=== PATIENT | male | born 1995 | race Caucasian/White ===

== ENCOUNTER 2018-09-30 07:46 | Emergency (ER) | payer BC ==
[2018-09-30 08:02] VITALS: BP 130/91
[2018-09-30] MEDS ORDERED: Ondansetron ODT TAB* 4 MG PO ONE (08:32)
--- NOTE | 2018-09-30 08:33 | UC ---
Headache HPI - HPI Summary HPI Summary: 23-year-old male comes in with a chief complaint of headache. This headache started 2 days ago in the morning. It's primarily in the frontal and occipital areas. At its worse at 8 out of 10. Right now it's a 6 out of 10. He states ibuprofen but that did not help. No focal weakness or numbness. Any kind of movement or light makes the headache worse. He's had nausea and vomiting with the headache. Also chills. He had a tick bite on the right leg 3 weeks ago. Approximately in June 2018 patient started having headaches. Prior to this time he had not had any history of headaches. The headaches are similar in location to this headache today. He did go to an urgent care and got a shot for pain medicine once but other than that he has not had any medical evaluation for these headaches. He's been getting these headaches on and off ever since. His last headache was one week ago and it lasted 24 hours. In between the headaches he does not have any headache pain. This headache is worse than the prior headaches and also this is the first days of had nausea vomiting and chills. He does have some upper neck pain but no lower back pain. No bodyaches or joint aches. - History Of Current Complaint Chief Complaint: UCHeadache Stated Complaint: HEADACHE Time Seen by Provider: 09/30/18 08:18 Pain Intensity: 6 - Allergies/Home Medications Allergies/Adverse Reactions: Allergies Allergy/AdvReac Type Severity Reaction Status Date / Time No Known Allergies Allergy Verified 09/30/18 08:02 Home Medications: Home Medications NK [No Home Medications Reported] 09/30/18 [History Confirmed 09/30/18] PMH/Surg Hx/FS Hx/Imm Hx Previously Healthy: Yes - Surgical History Surgical History: Yes Surgery Procedure, Year, and Place: T&A - Family History Known Family History: Positive: Non-Contributory - Social History Alcohol Use: Rare Substance Use Type: None Smoking Status (MU): Never Smoked Tobacco Review of Systems All Other Systems Reviewed And Are Negative: Yes Constitutional: Positive: Chills, Other - SEE HPI Skin: Positive: Negative Eyes: Positive: Photophobia ENT: Positive: Negative Respiratory: Positive: Negative Cardiovascular: Positive: Negative Gastrointestinal: Positive: Vomiting, Nausea Motor: Positive: Negative Neurovascular: Positive: Negative Musculoskeletal: Positive: Negative Neurological: Positive: Headache Psychological: Positive: Negative Is Patient Immunocompromised?: No Physical Exam Triage Information Reviewed: Yes Appearance: Well-Nourished, Ill-Appearing - MILD, Pain Distress - MILD Vital Signs: Initial Vital Signs Temp 97.9 F 09/30/18 07:54 Pulse 110 09/30/18 07:54 Resp 18 09/30/18 07:54 BP 130/91 09/30/18 07:54 Pulse Ox 98 09/30/18 07:54 Vital Signs Reviewed: Yes Eyes: Positive: Conjunctiva Clear, Other: - PERRLA/EOMI,POSITIVE PHOTOPHOBIA ENT: Positive: Pharynx normal, TMs normal Neck: Positive: Supple Respiratory: Positive: Lungs clear, Normal breath sounds, No respiratory distress Cardiovascular: Positive: Tachycardia Musculoskeletal Exam: Normal Musculoskeletal: Positive: Strength Intact, ROM Intact Neurological Exam: Normal Neurological: Positive: Alert, Muscle Tone Normal Psychological Exam: Normal Psychological: Positive: Normal Response To Family, Age Appropriate Behavior Skin Exam: Normal Headache Course/Dx - Course Course Of Treatment: I recommended further evaluation I recommended further evaluation in the emergency department. Patient is from [place] they plan to go to [place] emergency department. - Differential Dx/Diagnosis Provider Diagnosis: Headache, Nausea & vomiting Discharge - Sign-Out/Discharge Documenting (check all that apply): Patient Departure All imaging exams completed and their final reports reviewed: No Studies - Discharge Plan Condition: Stable Disposition: HOME-RECOMMEND TO ED Patient Education Materials: Acute Headache (ED), Acute Nausea and Vomiting (ED ) Referrals: Jewell Schultz NP [Primary Care Provider] - Additional Instructions: GO DIRECTLY TO THE EMERGENCY DEPARTMENT FOR FURTHER EVALUATION. - Billing Disposition and Condition Condition: STABLE Disposition: Home-Recommend to ED
== END 2018-09-30 08:38 | disposition home health service (06) ==
LOC: UCCORT 07:46
DX: R51 Headache (principal); R11.2 Nausea with vomiting, unspecified
CPT/HCPCS: 99202; A9270-GY; G0463